=== PATIENT | male | born 1945 | race Caucasian/White ===

== ENCOUNTER 2016-08-28 15:27 | Emergency (ER) | payer MEDICARE, OTHER ==
[2016-08-28 15:51] VITALS: BP 143/58
[2016-08-28] MEDS ORDERED: Ibuprofen 600 MG Tab PO ONE (16:59)
--- NOTE | 2016-08-28 17:04 | EDM.PDOC ---
[id number] Complaint: L CALF PAIN Time Seen by Provider: 08/28/16 16:50 Source of Information: Reports: Patient History Limitations: Reports: No Limitations - History of Present Illness INITIAL COMMENTS - FREE TEXT/NARRATIVE: 70-year-old male who developed left lower leg pain earlier today after mowing the lawn. He felt like it was a "cramp" but when it didn't resolve he started worrying about a blood clot. It is especially sore when he bears weight and tends to radiate up the deep aspect of the posterior leg. There is no swelling or bruising, no direct trauma, no fever, shortness of breath or previous symptoms similar to this. Location: Reports: Upper Extremity, Left Severity: Mild Worsens with: Reports: Other (Weightbearing), Movement Associated Symptoms: Reports: No Other Symptoms Left Lower Leg Pain Score (Numeric/FACES): 6 - Related Data Allergies Allergy/AdvReac Type Severity Reaction Status Date / Time No Known Allergies Allergy Verified 08/28/16 15:52 Home Meds: Home Meds Allopurinol [Zyloprim] 100 mg PO DAILY 08/28/16 [History] Cetirizine [ZyrTEC] 10 mg PO DAILY 08/28/16 [History] Metoprolol Succinate 100 mg PO DAILY 08/28/16 [History] Valsartan 160 mg PO BEDTIME 08/28/16 [History] Vardenafil HCl [Levitra] 20 mg PO ASDIRECTED 08/28/16 [History] metFORMIN [Glucophage] 500 mg PO BIDMEALS 08/28/16 [History] Past Medical History Cardiovascular History: Reports: CAD, High Cholesterol, Hypertension, Stents Respiratory History: Reports: PE Gastrointestinal History: Reports: Chronic Diarrhea, Hemorrhoids Genitourinary History: Reports: Prostate Disorder Other Genitourinary History: ED Musculoskeletal History: Reports: Arthritis, Fracture, Gout Psychiatric History: Reports: ADD, Anxiety, Depression, PTSD, Suicidal Ideation Endocrine/Metabolic History: Reports: Diabetes, Type II, Obesity/BMI 30+ - Infectious Disease History Infectious Disease History: Reports: C-Difficile, Scarlet Fever - Past Surgical History Cardiovascular Surgical History: Reports: Coronary Artery Stent, Percutaneous Transluminal Angioplasty Social & Family History - Tobacco Use Smoking Status *Q: Former Smoker Used Tobacco, but Quit: Yes Month Tobacco Last Used: 1969 - Caffeine Use Caffeine Use: Reports: Coffee, Soda - Recreational Drug Use Recreational Drug Use: No Review of Systems - Review of Systems Review Of Systems: See Below Constitutional: Denies: Fever Respiratory: Denies: Shortness of Breath Cardiovascular: Denies: Chest Pain GI/Abdominal: Denies: Abdominal Pain, Nausea, Vomiting Musculoskeletal: Denies: Back Pain Skin: Reports: No Symptoms Neurological: Reports: No Symptoms. Denies: Paresthesia Psychiatric: Reports: No Symptoms ED EXAM, GENERAL - Physical Exam Exam: See Below Exam Limited By: No Limitations General Appearance: Alert, No Apparent Distress Respiratory/Chest: No Respiratory Distress, Lungs Clear Cardiovascular: Regular Rate, Rhythm Extremities: Other (Exam is otherwise limited to the lower extremities. They are symmetric, there is no increase in diameter or swelling of the left lower leg, no edema, there is a small amount of discomfort with deep palpation of the gastrocnemius but the patient is now able to ambulate with minimal symptoms.) Skin Exam: Warm, Dry Course - Vital Signs Last Recorded V/S: Last Vital Signs Temp 96.8 F 08/28/16 15:51 Pulse 58 L 08/28/16 15:51 Resp 16 08/28/16 15:51 BP 143/58 H 08/28/16 15:51 Pulse Ox 98 08/28/16 15:51 - Orders/Labs/Meds Meds: Medications Discontinued Medications Generic Name Dose Route Start Last Admin Trade Name Betsy PRN Reason Stop Dose Admin Ibuprofen 600 mg 08/28/16 16:59 08/28/16 17:14 Motrin PO 08/28/16 17:00 600 mg ONETIME ONE Administration - Re-Assessments/Exams Free Text/Narrative Re-Assessment/Exam: 08/28/16 17:02 Explained to the patient that this is a musculoskeletal type of pain and does not present as a DVT. His symptoms are almost gone. We gave him 600 mg of ibuprofen by mouth, asked him to increase activity as tolerated and return if worsening. Departure - Departure Time of Disposition: 17:19 Disposition: Home, Self-Care 01 Condition: Good Clinical Impression: Lower extremity pain Qualifiers: Laterality: left Qualified Code(s): M79.605 - Pain in left leg - Discharge Information Instructions: Muscle Strain, [id number] Referrals: PCP,None [Primary Care Provider] - Forms: ED Department Discharge Care Plan Goals: Ibuprofen or naproxen on a regular basis for the next few days may be helpful. Increase activity as tolerated and return if worsening such as swelling, fever, redness or uncontrolled pain.
== END 2016-08-28 17:19 | disposition home or self-care (01) ==
LOC: JP.ED 15:27
DX: M79.662 Pain in left lower leg (principal); I25.10 Atherosclerotic heart disease of native coronary artery without angina pectoris; E11.9 Type 2 diabetes mellitus without complications; E78.00 Pure hypercholesterolemia, unspecified; I10 Essential (primary) hypertension; M19.90 Unspecified osteoarthritis, unspecified site; Z86.711 Personal history of pulmonary embolism; Z95.5 Presence of coronary angioplasty implant and graft; Z87.891 Personal history of nicotine dependence; Z79.84 Long term (current) use of oral hypoglycemic drugs; Z79.899 Other long term (current) drug therapy; Z98.890 Other specified postprocedural states
CPT/HCPCS: 99283; A9270